=== PATIENT | male | born 1945 | race African-American/Black ===

== ENCOUNTER 2021-02-19 20:14 | Inpatient (IN) | payer MEDICARE, MEDICAID ==
[~2021-02-19] VITALS: Ht 177.8 cm; Wt 80.7 kg
[~2021-02-19 20:14] MED LIST: ABIL5 PO; AMLO-361 PO; ASPI-518 PO; BISA10SU66 RC; CARV6.2548 PO; CLON0.2T PO; DOCU-138 PO; FLUT1DIS6 IH; HYDR100T26 PO; INSLAN SQ; LEVO25TA7 PO; LINA5TAB PO; MAGN400T29 PO; P20 PO; TERB2.5T2 PO; TIOT18CA3 IH
[2021-02-19] MEDS ORDERED: METHYLPREDNISOLONE SOD SUCC 125 MG/2 ML VIAL IV STA (20:25)
[2021-02-19] MEDS ORDERED: ALBUTEROL (0.083%) 2.5MG/3ML NEB HHN STA (20:25)
[2021-02-19] MEDS ORDERED: LEVOFLOXACIN 750MG PREMIX 150 ML IV STA (20:25)
[2021-02-19] MEDS ORDERED: IPRATROPIUM BROMIDE (0.02%) 0.5MG/2.5ML NEB HHN STA (20:25)
[2021-02-19 21:13] LABS: BASOPHILS % 0.8 % (0.0-2.0); EOSINOPHILS % 1.1 % (0.0-5.0); HEMATOCRIT. 48.5 % (42.0-52.0); HEMOGLOBIN. 16.5 g/dL (14.0-18.0); LYMPHOCYTES % 18.3 % (20.0-50.0); MEAN CORPUSCULAR HEMOGLOBIN 30.6 pg (28.0-32.0); MEAN CORPUSCULAR VOLUME 90.2 fL (80.0-94.0); MEAN PLATELET VOLUME 8.4 fl (7.4-10.4); MONOCYTES % 11.5 % (2.0-8.0); NEUTROPHILS % 68.3 % (40.0-76.0); PLATELET 197 x1000/uL (130-400); RED BLOOD CELL COUNT 5.38 mill/uL (4.7-6.1); RED CELL DISTRIBUTION WIDTH 13.7 % (11.6-14.6)
[2021-02-19 21:19] LABS: CHLORIDE 103 mEq/L (98-107)
[2021-02-19] MEDS ORDERED: IPRATROPIUM/ALBUTEROL 0.5-3(2.5)MG/3ML NEB HHN PRN (23:45)
[2021-02-19] MEDS ORDERED: MAGNESIUM/ALUMINUM HYDROXIDE/SIMETHICONE 30ML UDC PO PRN (23:45)
[2021-02-19] MEDS ORDERED: HYDROCODONE/ACETAMINOPHEN 5/325MG TABLET PO PRN (23:45)
[2021-02-19] MEDS ORDERED: HYDROMORPHONE HCL/PF 2MG/ML CPJ IV PRN (23:45)
[2021-02-19] MEDS ORDERED: ONDANSETRON HCL 4MG/2ML INJ IV PRN (23:45)
[2021-02-19] MEDS ORDERED: CLONIDINE 0.1MG TABLET PO PRN (23:45)
[2021-02-19] MEDS ORDERED: DOCUSATE SODIUM 100MG CAPSULE PO PRN (23:45)
[2021-02-19] MEDS ORDERED: ACETAMINOPHEN 325MG TABLET PO PRN (23:45)
[2021-02-19] MEDS ORDERED: GUAIFENESIN 200MG/10ML SUGAR FREE UDC PO PRN (23:45)
[2021-02-20] MEDS: METHYLPREDNISOLONE SOD SUCC 125 MG/2 ML VIAL IV SCH ×4 (00:20→18:32)
[2021-02-20] MEDS: IPRATROPIUM/ALBUTEROL 0.5-3(2.5)MG/3ML NEB HHN SCH ×3 (08:15→19:54)
[2021-02-20] MEDS: AMLODIPINE 10MG TABLET PO SCH (09:06)
[2021-02-20] MEDS: ASPIRIN 81MG EC TABLET PO SCH (09:06)
[2021-02-20] MEDS: ENOXAPARIN 40MG/0.4ML SYR SUBCUT SCH (09:08)
[2021-02-20 13:19] LABS: HEMATOCRIT. 47.1 % (42.0-52.0); HEMOGLOBIN. 16.3 g/dL (14.0-18.0); MEAN CORPUSCULAR HEMOGLOBIN 31.5 pg (28.0-32.0); MEAN CORPUSCULAR VOLUME 91.1 fL (80.0-94.0); MEAN PLATELET VOLUME 8.4 fl (7.4-10.4); PLATELET 209 x1000/uL (130-400); RED BLOOD CELL COUNT 5.17 mill/uL (4.7-6.1); RED CELL DISTRIBUTION WIDTH 13.5 % (11.6-14.6)
[2021-02-20 13:24] LABS: CHLORIDE 104 mEq/L (98-107)
[2021-02-20] MEDS ORDERED: NALOXONE HCL 0.4MG/ML VIAL IV PRN (15:00)
[2021-02-20 15:24] LABS: BG BASE EXCESS 1.2 mmol/L (-2.0-2.0); BG CARBOXYHEMOGLOBIN 0.3 % (0.5-1.5); BG DEOXYHEMOGLOBIN 0.3 % (0.0-5.0); BG METHEMOGLOBIN 0.4 % (0.0-1.5); BG OXYGEN SATURATION 99.7 % (92.0-98.5); BG PCO2 41.7 mmHg (35.0-45.0); BG PH 7.413 (7.350-7.450); BG PO2 540.2 mmHg (75.0-100.0); BG SAMPLE SITE LEFT RADIAL; BG TOTAL HEMOGLOBIN 16.7 g/dL (12.0-18.0); BG VENT MODE MASK - BIPAP
[2021-02-20] MEDS: THEOPHYLLINE ANHYDROUS 80 MG/15 ML 120ML PO SCH (18:32)
[2021-02-20 19:53] LABS: PLATELET ESTIMATE NORMAL
[2021-02-20] MEDS ORDERED: LEVOFLOXACIN 500MG PREMIX 100 ML IV SCH (23:00)
[2021-02-21] VITALS: BP 146/98
[2021-02-21 00:30] VITALS: BP 144/90
[2021-02-21] MEDS ORDERED: FURO-152 PO (00:40)
[2021-02-21] MEDS ORDERED: PRED10TA PO (00:40)
[2021-02-21] MEDS ORDERED: THEO400T PO (00:40)
[2021-02-21] MEDS ORDERED: TAMS-11 PO (00:40)
[2021-02-21] MEDS ORDERED: GABA800T97 PO (00:40)
[2021-02-21] MEDS: METHYLPREDNISOLONE SOD SUCC 125 MG/2 ML VIAL IV SCH ×3 (00:47→12:36)
[2021-02-21] MEDS: IPRATROPIUM/ALBUTEROL 0.5-3(2.5)MG/3ML NEB HHN SCH ×3 (00:58→15:04)
[2021-02-21 00:59] VITALS: BP 144/90
[2021-02-21] MEDS ORDERED: LEVOFLOXACIN 500MG PREMIX 100 ML IV SCH (02:00)
[2021-02-21 04:00] VITALS: BP 124/82
[2021-02-21] MEDS: THEOPHYLLINE ANHYDROUS 80 MG/15 ML 120ML PO SCH (06:03)
[2021-02-21 07:39] VITALS: BP 120/80
[2021-02-21] MEDS: ASPIRIN 81MG EC TABLET PO SCH (09:07)
[2021-02-21] MEDS: AMLODIPINE 10MG TABLET PO SCH (09:08)
[2021-02-21] MEDS: ENOXAPARIN 40MG/0.4ML SYR SUBCUT SCH (09:08)
[2021-02-21 12:00] VITALS: BP 139/73
== END 2021-02-21 15:40 | disposition home or self-care (01) | DRG 189 ==
LOC: ER 20:14 → EDBD 20:14 → MICUSO 22:36 → EDBD 22:36 → EDBEDREQ 22:45 → EDBEDREQTM 22:45 → 6WST 02-20 22:11
PROVIDERS: ADMIT Hospitalist; ATTEND Hospitalist
PROC: 5A09457 Assistance with Respiratory Ventilation, 24-96 Consecutive Hours, Continuous Positive Airway Pressure (ICD-10-PCS; principal; 2021-02-19)
PROC: 5A09357 Assistance with Respiratory Ventilation, Less than 24 Consecutive Hours, Continuous Positive Airway Pressure (ICD-10-PCS; 2021-02-21)
DX: J96.01 Acute respiratory failure with hypoxia (principal); J44.1 Chronic obstructive pulmonary disease with (acute) exacerbation; I50.32 Chronic diastolic (congestive) heart failure; E03.9 Hypothyroidism, unspecified; I11.0 Hypertensive heart disease with heart failure; Z20.822 Contact with and (suspected) exposure to COVID-19; Z79.52 Long term (current) use of systemic steroids; Z82.49 Family history of ischemic heart disease and other diseases of the circulatory system; Z99.81 Dependence on supplemental oxygen; Z88.0 Allergy status to penicillin; Z79.899 Other long term (current) drug therapy
CPT/HCPCS: 36415; 36600; 71045; 80053; 82375; 82805; 83605; 83880; 84145; 84484; 85025; 87426; 93005; 93970; 94640; 94644; 94660; 99291; J1650; J1956; J2930

== ENCOUNTER 2022-11-20 17:16 | Inpatient (IN) | payer MEDICARE, MEDICAID ==
[~2022-11-20] VITALS: Ht 175.3 cm; Wt 89.6 kg
[~2022-11-20 17:16] MED LIST changes: +FURO-152 PO; +GABA800T97 PO; +PRED10TA PO; +TAMS-11 PO; +THEO400T PO
[2022-11-20] MEDS ORDERED: SODIUM CHLORIDE 0.9% 1,000 ML IV ONE (18:00)
[2022-11-20 18:50] LABS: CHLORIDE 104 mEq/L (98-107)
[2022-11-20 18:51] LABS: BASOPHILS % 0.4 % (0.0-2.0); EOSINOPHILS % 0.4 % (0.0-5.0); HEMATOCRIT. 43.1 % (42.0-52.0); HEMOGLOBIN. 14.3 g/dL (14.0-18.0); LYMPHOCYTES % 12.1 % (20.0-50.0); MEAN CORPUSCULAR HEMOGLOBIN 30.3 pg (28.0-32.0); MEAN CORPUSCULAR VOLUME 90.9 fL (80.0-94.0); MEAN PLATELET VOLUME 8.2 fl (7.4-10.4); MONOCYTES % 7.5 % (2.0-8.0); NEUTROPHILS % 79.6 % (40.0-76.0); PLATELET 244 x1000/uL (130-400); RED BLOOD CELL COUNT 4.74 mill/uL (4.7-6.1); RED CELL DISTRIBUTION WIDTH 14.1 % (11.6-14.6)
[2022-11-20] MEDS ORDERED: SODIUM CHLORIDE 0.9% 1000ML BAG (SEPSIS BOLUS) IV ONE (19:30)
[2022-11-20] MEDS ORDERED: LEVOFLOXACIN 750MG PREMIX 150 ML IV ONE (19:30)
[2022-11-20] MEDS ORDERED: FUROSEMIDE 40MG/4ML VIAL IVP ONE (20:30)
[2022-11-20] MEDS ORDERED: ASPIRIN 81MG TABLET PO ONE (20:30)
[2022-11-20] MEDS ORDERED: ACETAMINOPHEN 325MG TABLET PO PRN ×2 (21:30)
[2022-11-20] MEDS ORDERED: DEXTROSE 50% WATER 50ML SYRINGE IV PRN (21:30)
[2022-11-20] MEDS ORDERED: ENOXAPARIN 40MG/0.4ML SYR SUBCUT SCH (21:30)
[2022-11-20] MEDS ORDERED: GUAIFENESIN 200MG/10ML SUGAR FREE UDC PO PRN (21:30)
[2022-11-20] MEDS ORDERED: IPRATROPIUM/ALBUTEROL 0.5-3(2.5)MG/3ML NEB NEB PRN (21:30)
[2022-11-20] MEDS ORDERED: LEVOFLOXACIN 500MG PREMIX 100 ML IV SCH (21:30)
[2022-11-20] MEDS ORDERED: CLONIDINE 0.1MG TABLET PO PRN (21:30)
[2022-11-20] MEDS ORDERED: ONDANSETRON HCL 4MG/2ML INJ IV PRN (21:30)
[2022-11-20] MEDS ORDERED: SACU1TAB PO (21:44)
[2022-11-20] MEDS ORDERED: APIX2.5T PO (21:44)
[2022-11-20] MEDS: GABAPENTIN 100MG CAPSULE PO SCH (22:00)
[2022-11-20] MEDS: METHYLPREDNISOLONE SOD SUCC 40 MG/ML (ACT-O-VIAL) IV SCH (22:00)
[2022-11-20] MEDS: IPRATROPIUM/ALBUTEROL 0.5-3(2.5)MG/3ML NEB NEB SCH (22:29)
[2022-11-20 22:50] LABS: T4 FREE 1.06 ng/dL (0.76-1.46)
[2022-11-20 22:59] LABS: BG BASE EXCESS -2.1 mmol/L (-2.0-2.0); BG CARBOXYHEMOGLOBIN 1.3 % (0.5-1.5); BG DEOXYHEMOGLOBIN 2.9 % (0.0-5.0); BG FRACTION INSPIRED OXYGEN 28; BG HCO3 ACT 22.2 mmol/L (22.0-26.0); BG METHEMOGLOBIN 0.1 % (0.0-1.5); BG OXYGEN SATURATION 97.1 % (92.0-98.5); BG OXYHEMOGLOBIN 95.7 % (94.0-97.0); BG PCO2 36.7 mmHg (35.0-45.0); BG PO2 91.9 mmHg (75.0-100.0); BG SAMPLE SITE RIGHT RADIAL; BG TOTAL HEMOGLOBIN 14.2 g/dL (12.0-18.0); BG VENT MODE NASAL CANNULA
[2022-11-20 23:13] LABS: CLARITY URINE CLEAR (CLEAR); COLOR URINE YELLOW (YELLOW); KETONES URINE NEGATIVE (NEGATIVE); LEUKOCYTE ESTERASE URINE NEGATIVE (NEGATIVE); NITRITE URINE NEGATIVE (NEGATIVE); OCCULT BLOOD URINE NEGATIVE (NEGATIVE); PROTEIN URINE NEGATIVE (NEGATIVE); SPECIFIC GRAVITY URINE 1.012 (1.005-1.030); UROBILINOGEN URINE 0.2 E.U./dL (0.2-1.0)
[2022-11-21] MEDS ORDERED: DOXYCYCLINE 100 MG in DEXT 5% WATER 100 ML IV SCH (02:15)
[2022-11-21] MEDS: IPRATROPIUM/ALBUTEROL 0.5-3(2.5)MG/3ML NEB NEB SCH ×2 (04:15→07:53)
[2022-11-21 06:13] LABS: BASOPHILS % 0.3 % (0.0-2.0); EOSINOPHILS % 0.8 % (0.0-5.0); HEMATOCRIT. 38.7 % (42.0-52.0); LYMPHOCYTES % 18.4 % (20.0-50.0); MEAN CORPUSCULAR VOLUME 89.7 fL (80.0-94.0); MEAN PLATELET VOLUME 8.2 fl (7.4-10.4); MONOCYTES % 11.1 % (2.0-8.0); NEUTROPHILS % 69.4 % (40.0-76.0); PLATELET 247 x1000/uL (130-400); RED BLOOD CELL COUNT 4.32 mill/uL (4.7-6.1); RED CELL DISTRIBUTION WIDTH 13.9 % (11.6-14.6)
[2022-11-21 06:38] LABS: CHLORIDE 106 mEq/L (98-107)
[2022-11-21 06:47] LABS: HDL CHOLESTEROL 56 mg/dL (40-59); LDL CHOLESTEROL 122 mg/dL (5-100)
[2022-11-21] MEDS: METHYLPREDNISOLONE SOD SUCC 40 MG/ML (ACT-O-VIAL) IV SCH (06:49)
[2022-11-21] MEDS: GABAPENTIN 100MG CAPSULE PO SCH ×3 (06:50→21:48)
[2022-11-21] MEDS: BLOOD SUGAR DIAGNOSTIC STRIP TEST SCH ×4 (06:50→21:56)
[2022-11-21] MEDS: INSULIN LISPRO 100 UNITS/ML SUBCUT SCH ×4 (06:51→21:55)
[2022-11-21] MEDS ORDERED: MEDICATION NOT ON FORMULARY EA (Sacubitril/Valsartan (Entresto 24 mg-26 mg Tablet) 1 TAB PO SCH (09:00)
[2022-11-21] MEDS ORDERED: LISINOPRIL 10MG TABLET PO SCH (09:00)
[2022-11-21 10:00] VITALS: BP 150/95
[2022-11-21] MEDS: TAMSULOSIN HCL 0.4MG SR CAPSULE PO SCH (10:31)
[2022-11-21] MEDS: PANTOPRAZOLE SODIUM 40 MG/VIAL IV SCH (10:31)
[2022-11-21] MEDS: APIXABAN 2.5 MG TABLET PO SCH ×2 (10:31→16:20)
[2022-11-21] MEDS: FUROSEMIDE 20MG/2ML VIAL IV SCH ×2 (10:31→16:20)
[2022-11-21] MEDS: METOPROLOL TARTRATE 25MG TABLET PO SCH ×2 (10:32→21:49)
[2022-11-21 12:00] VITALS: BP 150/95
[2022-11-21] MEDS: DOXYCYCLINE 100 MG in DEXT 5% WATER 100 ML IV SCH ×2 (12:51→21:48)
[2022-11-21] MEDS: SACUBITRIL/VALSARTAN 24MG/26MG TABLET PO SCH ×2 (12:59→16:19)
[2022-11-21] MEDS: METHYLPREDNISOLONE SOD SUCC 125 MG/2 ML VIAL IV SCH ×2 (13:29→21:49)
[2022-11-21 14:00] VITALS: BP 150/94
[2022-11-21 16:00] VITALS: BP 113/65
[2022-11-21] MEDS: MONTELUKAST SODIUM 10MG TABLET PO SCH (16:20)
[2022-11-21 20:00] VITALS: BP 136/92
[2022-11-21] MEDS ORDERED: LEVOFLOXACIN 250MG PREMIX 50 ML IV SCH (21:00)
[2022-11-21] MEDS: GUAIFENESIN 600MG ER TABLET PO SCH (21:49)
[2022-11-21] MEDS: THEOPHYLLINE ANHYDROUS 80 MG/15 ML 120ML PO SCH (21:56)
[2022-11-22] VITALS: BP 150/90
[2022-11-22 04:00] VITALS: BP 151/96
[2022-11-22] MEDS: GABAPENTIN 100MG CAPSULE PO SCH ×3 (05:47→22:00)
[2022-11-22] MEDS: THEOPHYLLINE ANHYDROUS 80 MG/15 ML 120ML PO SCH (05:48)
[2022-11-22] MEDS: METHYLPREDNISOLONE SOD SUCC 125 MG/2 ML VIAL IV SCH ×3 (05:48→22:01)
[2022-11-22] MEDS: BLOOD SUGAR DIAGNOSTIC STRIP TEST SCH ×4 (05:54→21:00)
[2022-11-22 08:00] VITALS: BP 99/66
[2022-11-22] MEDS: INSULIN LISPRO 100 UNITS/ML SUBCUT SCH ×4 (08:30→21:00)
[2022-11-22] MEDS: TAMSULOSIN HCL 0.4MG SR CAPSULE PO SCH (09:00)
[2022-11-22] MEDS: METOPROLOL TARTRATE 25MG TABLET PO SCH (09:00)
[2022-11-22] MEDS: APIXABAN 2.5 MG TABLET PO SCH ×2 (09:05→17:27)
[2022-11-22] MEDS: DOXYCYCLINE 100 MG in DEXT 5% WATER 100 ML IV SCH ×2 (09:05→22:00)
[2022-11-22] MEDS: PANTOPRAZOLE SODIUM 40 MG/VIAL IV SCH (09:05)
[2022-11-22] MEDS: SACUBITRIL/VALSARTAN 24MG/26MG TABLET PO SCH ×2 (09:05→17:27)
[2022-11-22] MEDS: FUROSEMIDE 20MG/2ML VIAL IV SCH ×2 (09:05→17:26)
[2022-11-22] MEDS: GUAIFENESIN 600MG ER TABLET PO SCH ×2 (09:05→22:00)
[2022-11-22 12:00] VITALS: BP 101/72
[2022-11-22] MEDS: DILTIAZEM HCL 30MG TABLET PO SCH ×2 (13:51→18:00)
[2022-11-22] MEDS: IPRATROPIUM/ALBUTEROL 0.5-3(2.5)MG/3ML NEB NEB SCH ×2 (14:10→21:30)
[2022-11-22 16:00] VITALS: BP 111/65
[2022-11-22] MEDS: SPIRONOLACTONE 25MG TABLET PO SCH (16:28)
[2022-11-22] MEDS: MONTELUKAST SODIUM 10MG TABLET PO SCH (17:26)
[2022-11-22] MEDS ORDERED: DIGOXIN 500MCG/2ML AMP IV NR (18:36)
[2022-11-22 19:59] LABS: CHLORIDE 101 mEq/L (98-107)
[2022-11-22 20:00] VITALS: BP 110/79
[2022-11-23] VITALS: BP 128/82
[2022-11-23 00:26] VITALS: BP 128/82
[2022-11-23] MEDS: DILTIAZEM HCL 30MG TABLET PO SCH ×2 (00:48→06:08)
[2022-11-23] MEDS: IPRATROPIUM/ALBUTEROL 0.5-3(2.5)MG/3ML NEB NEB SCH ×2 (01:02→09:08)
[2022-11-23 04:00] VITALS: BP 129/79
[2022-11-23] MEDS ORDERED: DILTIAZEM HCL 5MG/ML 5ML VIAL IV PRN (06:00)
[2022-11-23] MEDS ORDERED: DIGOXIN 500MCG/2ML AMP IV PRN (06:00)
[2022-11-23] MEDS: GABAPENTIN 100MG CAPSULE PO SCH (06:07)
[2022-11-23] MEDS: METHYLPREDNISOLONE SOD SUCC 125 MG/2 ML VIAL IV SCH (06:17)
[2022-11-23] MEDS: BLOOD SUGAR DIAGNOSTIC STRIP TEST SCH (07:40)
[2022-11-23 07:50] LABS: CHLORIDE 103 mEq/L (98-107)
[2022-11-23 07:55] VITALS: BP 113/84
[2022-11-23] MEDS: FUROSEMIDE 20MG/2ML VIAL IV SCH (08:57)
[2022-11-23] MEDS: TAMSULOSIN HCL 0.4MG SR CAPSULE PO SCH (08:57)
[2022-11-23] MEDS: APIXABAN 2.5 MG TABLET PO SCH (08:57)
[2022-11-23] MEDS: SPIRONOLACTONE 25MG TABLET PO SCH (08:57)
[2022-11-23] MEDS: GUAIFENESIN 600MG ER TABLET PO SCH (08:58)
[2022-11-23] MEDS ORDERED: FAMOTIDINE 20MG TABLET PO SCH (09:00)
[2022-11-23] MEDS: INSULIN LISPRO 100 UNITS/ML SUBCUT SCH (09:03)
[2022-11-23] MEDS: DOXYCYCLINE 100 MG in DEXT 5% WATER 100 ML IV SCH (09:06)
[2022-11-23 10:49] VITALS: BP 101/72
[2022-11-23 11:20] VITALS: BP 102/66
== END 2022-11-23 11:50 | disposition home or self-care (01) | DRG 291 ==
LOC: ER 17:16 → MICUSO 20:25 → 7WST 11-21 09:57
PROVIDERS: ADMIT Internal Medicine; ATTEND Internal Medicine
DX: I13.0 Hypertensive heart and chronic kidney disease with heart failure and stage 1 through stage 4 chronic kidney disease, or unspecified chronic kidney disease (principal); I50.43 Acute on chronic combined systolic (congestive) and diastolic (congestive) heart failure; J96.01 Acute respiratory failure with hypoxia; N17.0 Acute kidney failure with tubular necrosis; J96.02 Acute respiratory failure with hypercapnia; G40.909 Epilepsy, unspecified, not intractable, without status epilepticus; Z20.822 Contact with and (suspected) exposure to COVID-19; N40.0 Benign prostatic hyperplasia without lower urinary tract symptoms; R74.01 Elevation of levels of liver transaminase levels; N18.9 Chronic kidney disease, unspecified; J43.9 Emphysema, unspecified; E11.22 Type 2 diabetes mellitus with diabetic chronic kidney disease; E03.9 Hypothyroidism, unspecified; I48.0 Paroxysmal atrial fibrillation; Z82.49 Family history of ischemic heart disease and other diseases of the circulatory system; Z79.01 Long term (current) use of anticoagulants; Z99.81 Dependence on supplemental oxygen; Z88.0 Allergy status to penicillin; Z79.899 Other long term (current) drug therapy; Z79.4 Long term (current) use of insulin; Z87.01 Personal history of pneumonia (recurrent)
CPT/HCPCS: 36415; 36600; 71045; 71250; 76700; 80048; 80053; 80061; 81003; 82375; 82805; 82962; 83036; 83605; 83735; 83880; 84145; 84439; 84443; 84484; 85025; 85379; 87426; 93005; 93306; 94640; 97162; 99285; C9113; J1160; J1815; J1940; J1956; J2920; J2930; J3490; J7030; J7060

== ENCOUNTER 2025-06-22 04:10 | Inpatient (IN) | payer MEDICARE, MEDICAID ==
[~2025-06-22] VITALS: Ht 180.3 cm; Wt 89.0 kg
[2025-06-22] VITALS (13 sets, daily range): BP systolic 104–135; BP diastolic 76–113; PULSE 96–110; RESP 16–30; TEMP 36.4–37.2; O2SAT 91–100
[~2025-06-22 04:10] MED LIST changes: -ABIL5 PO; -AMLO-361 PO; +APIX5TAB PO; -ASPI-518 PO; +ATOR-2 PO; -BISA10SU66 RC; -CARV6.2548 PO; -CLON0.2T PO; +DILT30TA3 PO; -DOCU-138 PO; -FLUT1DIS6 IH; -GABA800T97 PO; -HYDR100T26 PO; -LINA5TAB PO; -MAGN400T29 PO; +MEMA28CA16 PO; +OMEP20TA15 MT; -PRED10TA PO; -TAMS-11 PO; +TAMS-54 PO; -TERB2.5T2 PO; -TIOT18CA3 IH; +VIT1TABL62 PO
[2025-06-22] MEDS: IPRATROPIUM BROMIDE (0.02%) 0.5MG/2.5ML NEB HHN SCH (04:15)
[2025-06-22] MEDS: ALBUTEROL (0.083%) 2.5MG/3ML NEB HHN SCH (04:15)
[2025-06-22] MEDS: AZITHROMYCIN 500MG/250ML 250 ML IV ONE (04:30)
[2025-06-22] MEDS: SODIUM CHLORIDE 0.9% (SEPSIS BOLUS) IV ONE (05:10)
[2025-06-22] MEDS: CEFTRIAXONE 1GM/50ML 50 ML IV ONE (05:13)
[2025-06-22 05:15] LABS: BASOPHILS % 0.7 % (0.0-2.0); EOSINOPHILS % 0.8 % (0.0-5.0); HEMATOCRIT. 41.8 % (42.0-52.0); HEMOGLOBIN. 13.1 g/dL (14.0-18.0); LYMPHOCYTES % 15.4 % (20.0-50.0); MEAN PLATELET VOLUME 8.6 fl (7.4-10.4); MONOCYTES % 8.4 % (2.0-8.0); NEUTROPHILS % 74.7 % (40.0-76.0); PLATELET 194 x1000/uL (130-400); RED BLOOD CELL COUNT 4.69 mill/uL (4.7-6.1); RED CELL DISTRIBUTION WIDTH 15.1 % (11.6-14.6)
[2025-06-22] MEDS: ONDANSETRON HCL 4MG/2ML INJ IV ONE (05:29)
[2025-06-22] MEDS: METHYLPREDNISOLONE SOD SUCC 125MG/2ML (ACT-O-VIAL) IV ONE (05:29)
[2025-06-22] MEDS: MAGNESIUM 2 G PREMIX 50 ML IV ONE (05:29)
[2025-06-22 05:33] LABS: CREATININE 1.1 mg/dL (0.6-1.3); UREA NITROGEN BLOOD 7 mg/dL (9-23)
[2025-06-22 05:34] LABS: PROTEIN TOTAL 6.4 g/dL (6.0-8.3)
[2025-06-22 05:35] LABS: ASPARTATE AMINOTRANSFERASE 21 IU/L (<34); BILIRUBIN DIRECT 0.2 mg/dL (<=3.0); BILIRUBIN TOTAL 0.6 mg/dL (0.1-1.0); TROPONIN I HIGH SENSITIVITY 97 ng/L (3.0-53)
[2025-06-22 06:35] LABS: CLARITY URINE CLOUDY (CLEAR); COLOR URINE YELLOW (YELLOW); GLUCOSE URINE NEGATIVE (NEGATIVE); KETONES URINE NEGATIVE (NEGATIVE); LEUKOCYTE ESTERASE URINE 3+ (NEGATIVE); NITRITE URINE POSITIVE (NEGATIVE); OCCULT BLOOD URINE 1+ (NEGATIVE); PH URINE 6.0 (4.5-8.0); PROTEIN URINE 1+ (NEGATIVE); SPECIFIC GRAVITY URINE 1.014 (1.005-1.030); UROBILINOGEN URINE 0.2 E.U./dL (0.2-1.0)
[2025-06-22 07:04] LABS: BG BASE EXCESS 2.9 mmol/L (-2.0-3.0); BG CARBOXYHEMOGLOBIN 0.7 % (0.5-1.5); BG DEOXYHEMOGLOBIN 0.8 % (0.0-5.0); BG FRACTION INSPIRED OXYGEN 60; BG HCO3 ACT 29.2 mmol/L (21.0-28.0); BG METHEMOGLOBIN 0.3 % (0.5-1.5); BG OXYGEN SATURATION 99.2 % (94.0-98.0); BG OXYHEMOGLOBIN 98.2 % (94.0-98.0); BG PCO2 51.9 mmHg (35.0-48.0); BG PH 7.368 (7.350-7.450); BG PO2 157.1 mmHg (83.0-108.0); BG SAMPLE SITE RIGHT RADIAL; BG TOTAL HEMOGLOBIN 13.1 g/dL (13.5-17.5); BG VENT MODE MASK - BIPAP; BG VENT RATE 20.0 set
[2025-06-22] MEDS ORDERED: ACETAMINOPHEN 325MG TABLET PO PRN (07:45)
[2025-06-22] MEDS ORDERED: MAGNESIUM/ALUMINUM HYDROXIDE/SIMETHICONE 30ML UDC PO PRN (07:45)
[2025-06-22] MEDS ORDERED: IPRATROPIUM/ALBUTEROL 0.5-3(2.5)MG/3ML NEB HHN PRN (07:45)
[2025-06-22] MEDS ORDERED: ONDANSETRON HCL 4MG/2ML INJ IV PRN (07:45)
[2025-06-22] MEDS ORDERED: CLONIDINE 0.1MG TABLET PO PRN (07:45)
[2025-06-22] MEDS ORDERED: IPRATROPIUM/ALBUTEROL 0.5-3(2.5)MG/3ML NEB HHN SCH (08:00)
[2025-06-22] MEDS: GUAIFENESIN 600MG ER TABLET PO SCH (08:38)
[2025-06-22] MEDS: FUROSEMIDE 40MG/4ML VIAL IV SCH (08:38)
[2025-06-22] MEDS: ENOXAPARIN 80MG/0.8ML SYR SUBCUT SCH (08:39)
[2025-06-22] MEDS: TAMSULOSIN HCL 0.4MG SR CAPSULE PO SCH (08:40)
[2025-06-22] MEDS: METHYLPREDNISOLONE SOD SUCC 125MG/2ML (ACT-O-VIAL) IV SCH (08:48)
[2025-06-22] MEDS: DILTIAZEM HCL 30MG TABLET PO SCH (08:48)
[2025-06-22] MEDS: LEVOTHYROXINE SODIUM 25MCG TABLET PO SCH (08:48)
[2025-06-22] MEDS: FAMOTIDINE 20MG/2ML VIAL IV SCH (08:49)
[2025-06-22] MEDS: ACETAMINOPHEN 325MG TABLET PO PRN (08:50)
[2025-06-22] MEDS ORDERED: MEMANTINE HCL 5MG TABLET PO SCH (09:00)
[2025-06-22] MEDS: EMPAGLIFLOZIN 10MG TABLET PO SCH (10:43)
[2025-06-22] MEDS: MEMANTINE HCL 10MG TABLET PO SCH (10:44)
[2025-06-22] MEDS: INSULIN GLARGINE 100 UNITS/ML SUBCUT SCH (10:44)
[2025-06-22 10:57] LABS: INR 1.0
[2025-06-22 11:44] LABS: TROPONIN I HIGH SENSITIVITY 118 ng/L (3.0-53)
[2025-06-22] MEDS: METHYLPREDNISOLONE SOD SUCC 40MG/ML (ACT-O-VIAL) IV SCH (13:03)
[2025-06-22 13:19] LABS: MUCUS URINE 1+ /lpf (NONE/TRACE); SQUAMOUS EPITHELIAL CELL URINE 2+ /lpf (RARE/1+)
[2025-06-22 13:20] LABS: BACTERIA URINE 2+; RBC URINE 15-25 /hpf (0-2); WBC URINE 50-100 /hpf (0-2)
[2025-06-22 13:21] LABS: *AMPHETAMINES SCREEN URINE NEGATIVE (NEGATIVE); *BARBITURATES SCREEN URINE NEGATIVE (NEGATIVE); *BENZODIAZEPINES SCREEN URINE NEGATIVE (NEGATIVE); *COCAINE SCREEN URINE NEGATIVE (NEGATIVE); METHADONE URINE SCREEN NEGATIVE (NEGATIVE); OPIATES URINE SCREEN NEGATIVE (NEGATIVE)
[2025-06-22 13:22] LABS: CANNABINOID URINE SCREEN NEGATIVE (NEGATIVE); ECSTASY MDMA SCREEN URINE NEGATIVE (NEGATIVE); PHENCYCLIDINE URINE SCREEN NEGATIVE (NEGATIVE)
[2025-06-22] MEDS ORDERED: INFLUENZA VACCINE 05/PF 0.5 ML SYRINGE IM ONE (15:00)
[2025-06-22] MEDS ORDERED: PNEUMOCOCCAL 20-VAL CONJ-DIP CRM 0.5ML IM ONE (15:00)
[2025-06-22] MEDS: IPRATROPIUM/ALBUTEROL 0.5-3(2.5)MG/3ML NEB HHN SCH (20:41)
[2025-06-22] MEDS: ENOXAPARIN 100MG/ML SYR SUBCUT SCH (21:12)
[2025-06-23] VITALS (14 sets, daily range): BP systolic 104–134; BP diastolic 73–107; PULSE 91–124; RESP 10–23; TEMP 36.1–36.7; O2SAT 96–100
[2025-06-23 00:47] LABS: CREATINE KINASE MB FRACTION 3.4 ng/mL (0.5-3.6)
[2025-06-23 01:03] LABS: TROPONIN I HIGH SENSITIVITY 90 ng/L (3.0-53)
[2025-06-23] MEDS: CEFTRIAXONE 1GM/50ML 50 ML IV SCH (05:08)
[2025-06-23 07:03] LABS: HEMATOCRIT. 37.6 % (42.0-52.0); HEMOGLOBIN. 12.2 g/dL (14.0-18.0); MEAN PLATELET VOLUME 8.5 fl (7.4-10.4); PLATELET 182 x1000/uL (130-400); RED BLOOD CELL COUNT 4.28 mill/uL (4.7-6.1); RED CELL DISTRIBUTION WIDTH 14.8 % (11.6-14.6)
[2025-06-23 07:08] LABS: CREATININE 1.1 mg/dL (0.6-1.3)
[2025-06-23 07:09] LABS: T4 FREE 1.17 ng/dL (0.89-1.76); TRIGLYCERIDE 67 mg/dL (0-150); UREA NITROGEN BLOOD 13 mg/dL (9-23)
[2025-06-23 07:10] LABS: LDL CHOLESTEROL 64 mg/dL (5-100)
[2025-06-23 13:21] LABS: LYMPHOCYTES % MANUAL 7.0 % (20.0-50.0); MONOCYTES % MANUAL 4.0 % (2.0-8.0); NEUTROPHILS % MANUAL 89.0 % (45.0-75.0); PLATELET ESTIMATE NORMAL
[2025-06-24] VITALS (16 sets, daily range): BP systolic 91–122; BP diastolic 57–97; PULSE 80–132; RESP 9–28; TEMP 36.3–36.7; O2SAT 95–100
[2025-06-24 06:12] LABS: CREATININE 1.2 mg/dL (0.6-1.3)
[2025-06-24 06:13] LABS: UREA NITROGEN BLOOD 18 mg/dL (9-23)
[2025-06-24 06:23] LABS: HEMATOCRIT. 37.8 % (42.0-52.0); HEMOGLOBIN. 12.0 g/dL (14.0-18.0); MEAN PLATELET VOLUME 8.6 fl (7.4-10.4); PLATELET 187 x1000/uL (130-400); RED BLOOD CELL COUNT 4.30 mill/uL (4.7-6.1); RED CELL DISTRIBUTION WIDTH 15.2 % (11.6-14.6)
[2025-06-24] MEDS: PREDNISONE 10MG TABLET PO SCH (09:31)
[2025-06-24 14:39] LABS: LYMPHOCYTES % MANUAL 10.0 % (20.0-50.0); MONOCYTES % MANUAL 6.0 % (2.0-8.0); NEUTROPHILS % MANUAL 84.0 % (45.0-75.0); PLATELET ESTIMATE NORMAL
[2025-06-24] MEDS ORDERED: FURO-152 PO (14:51)
[2025-06-24] MEDS ORDERED: EMPA10TA PO (14:51)
[2025-06-24] MEDS ORDERED: PRED10TA PO (14:51)
[2025-06-24] MEDS ORDERED: ATOR-2 PO (14:51)
[2025-06-24] MEDS ORDERED: APIX5TAB PO (14:51)
[2025-06-24] MEDS ORDERED: LEVO-65 MT (14:52)
[2025-06-24] MEDS ORDERED: DILT30TA3 PO (15:21)
[2025-06-24] MEDS: INFLUENZA VACCINE 05/PF 0.5 ML SYRINGE IM ONE (17:22)
[2025-06-24] MEDS: PNEUMOCOCCAL 20-VAL CONJ-DIP CRM 0.5ML IM ONE (17:24)
[2025-06-24] MEDS: METOPROLOL TARTRATE 5MG/5ML VIAL IV SCH (19:58)
[2025-06-25] VITALS (9 sets, daily range): BP systolic 100–150; BP diastolic 61–93; PULSE 73–126; RESP 9–25; TEMP 36.4–36.8; O2SAT 88–100
[2025-06-25] MEDS: CARVEDILOL 3.125 MG TABLET PO NR (11:39)
[2025-06-25] MEDS: DIGOXIN 500MCG/2ML AMP IV NR (14:13)
[2025-06-25] MEDS: DIGOXIN 125MCG TABLET PO SCH (17:22)
[2025-06-25] MEDS: METOPROLOL TARTRATE 25MG TABLET PO SCH (21:12)
[2025-06-26] VITALS (11 sets, daily range): BP systolic 94–136; BP diastolic 66–84; PULSE 75–100; RESP 11–21; TEMP 36.4–36.8; O2SAT 95–100
[2025-06-26 06:03] LABS: BASOPHILS % 0.2 % (0.0-2.0); EOSINOPHILS % 0.9 % (0.0-5.0); HEMATOCRIT. 38.7 % (42.0-52.0); HEMOGLOBIN. 12.3 g/dL (14.0-18.0); LYMPHOCYTES % 23.7 % (20.0-50.0); MEAN PLATELET VOLUME 8.8 fl (7.4-10.4); MONOCYTES % 10.5 % (2.0-8.0); NEUTROPHILS % 64.7 % (40.0-76.0); PLATELET 176 x1000/uL (130-400); RED BLOOD CELL COUNT 4.35 mill/uL (4.7-6.1); RED CELL DISTRIBUTION WIDTH 14.8 % (11.6-14.6)
[2025-06-26 06:26] LABS: CREATININE 1.1 mg/dL (0.6-1.3); UREA NITROGEN BLOOD 13 mg/dL (9-23)
[2025-06-26] MEDS ORDERED: CEFEPIME 2GM/100ML 100 ML IV SCH (08:15)
[2025-06-26] MEDS: SODIUM CHLORIDE 0.45% 1,000 ML IV SCH (09:09)
[2025-06-26] MEDS: CEFEPIME 2GM/100ML 100 ML IV SCH (10:12)
[2025-06-26] MEDS ORDERED: IPRATROPIUM/ALBUTEROL 0.5-3(2.5)MG/3ML NEB HHN PRN (12:00)
[2025-06-26] MEDS: IPRATROPIUM/ALBUTEROL 0.5-3(2.5)MG/3ML NEB HHN SCH (16:07)
[2025-06-26] MEDS: ENOXAPARIN 100MG/ML SYR SUBCUT SCH (20:40)
[2025-06-26] MEDS: METOPROLOL TARTRATE 50MG TABLET PO SCH (20:40)
[2025-06-27] VITALS (9 sets, daily range): BP systolic 97–122; BP diastolic 53–87; PULSE 80–98; RESP 10–29; TEMP 36.3–36.7; O2SAT 96–100
[2025-06-27 07:19] LABS: BASOPHILS % 0.3 % (0.0-2.0); EOSINOPHILS % 1.9 % (0.0-5.0); HEMATOCRIT. 42.1 % (42.0-52.0); HEMOGLOBIN. 13.3 g/dL (14.0-18.0); LYMPHOCYTES % 16.4 % (20.0-50.0); MEAN PLATELET VOLUME 8.8 fl (7.4-10.4); MONOCYTES % 9.8 % (2.0-8.0); NEUTROPHILS % 71.6 % (40.0-76.0); PLATELET 159 x1000/uL (130-400); RED BLOOD CELL COUNT 4.72 mill/uL (4.7-6.1); RED CELL DISTRIBUTION WIDTH 14.8 % (11.6-14.6)
[2025-06-27 07:46] LABS: CREATININE 1.3 mg/dL (0.6-1.3)
[2025-06-27 07:47] LABS: UREA NITROGEN BLOOD 20 mg/dL (9-23)
[2025-06-27 07:49] LABS: PHOSPHORUS 3.1 mg/dL (2.5-4.9)
[2025-06-27] MEDS ORDERED: DIGO125T80 MT (16:06)
[2025-06-27] MEDS ORDERED: METO-539 MT (16:06)
[2025-06-27] MEDS ORDERED: NITR-87 MT (16:06)
== END 2025-06-27 20:55 | disposition home health service (06) | DRG 871 ==
LOC: ER 04:10 → 5EST 05:15 → EDBEDREQTM 05:27 → EDBEDREQ 05:27 → ENRESERV 05:47
PROVIDERS: ADMIT Internal Medicine; ATTEND Internal Medicine
PROC: 5A09357 Assistance with Respiratory Ventilation, Less than 24 Consecutive Hours, Continuous Positive Airway Pressure (ICD-10-PCS; 2025-06-22)
PROC: 5A09357 Assistance with Respiratory Ventilation, Less than 24 Consecutive Hours, Continuous Positive Airway Pressure (ICD-10-PCS; principal; 2025-06-23)
DX: A41.59 Other Gram-negative sepsis (principal); I50.23 Acute on chronic systolic (congestive) heart failure; L89.153 Pressure ulcer of sacral region, stage 3; J96.21 Acute and chronic respiratory failure with hypoxia; E87.20 Acidosis, unspecified; I27.20 Pulmonary hypertension, unspecified; N39.0 Urinary tract infection, site not specified; Z79.01 Long term (current) use of anticoagulants; J44.1 Chronic obstructive pulmonary disease with (acute) exacerbation; I11.0 Hypertensive heart disease with heart failure; E03.9 Hypothyroidism, unspecified; E11.9 Type 2 diabetes mellitus without complications; F03.90 Unspecified dementia, unspecified severity, without behavioral disturbance, psychotic disturbance, mood disturbance, and anxiety; I34.0 Nonrheumatic mitral (valve) insufficiency; I47.19 Other supraventricular tachycardia; I45.2 Bifascicular block; I48.0 Paroxysmal atrial fibrillation; Z99.81 Dependence on supplemental oxygen; N40.0 Benign prostatic hyperplasia without lower urinary tract symptoms; E78.5 Hyperlipidemia, unspecified; F14.90 Cocaine use, unspecified, uncomplicated; F17.210 Nicotine dependence, cigarettes, uncomplicated; Z74.01 Bed confinement status; Z79.4 Long term (current) use of insulin; Z79.52 Long term (current) use of systemic steroids; Z79.899 Other long term (current) drug therapy; Z88.0 Allergy status to penicillin; Z82.49 Family history of ischemic heart disease and other diseases of the circulatory system
CPT/HCPCS: 36415; 36600; 71045; 80048; 80061; 80076; 80305; 81003; 82375; 82550; 82553; 82805; 82962; 83036; 83605; 83735; 83880; 84100; 84145; 84439; 84443; 84481; 84484; 85025; 85379; 87070; 87077; 87186; 90686; 90732; 93005; 93970; 94070; 94640; 94660; 94664; 97162; 97166; 97530; 98960; 99291; A4606; J0692; J0696; J1160; J1308; J1650; J1815; J1938; J2405; J2919; J3475; J3490; J7030; J7512